=== PATIENT | female | born 1985 | race Caucasian/White ===

== ENCOUNTER 2016-05-12 22:55 | Emergency (ER) | payer OTHER | END 2016-05-13 02:31 | disposition home or self-care (01) | LOC: ER 22:55 | DX: R51 Headache (principal); I10 Essential (primary) hypertension; E11.9 Type 2 diabetes mellitus without complications; Z98.51 Tubal ligation status; F17.210 Nicotine dependence, cigarettes, uncomplicated; Z79.4 Long term (current) use of insulin; Z88.8 Allergy status to other drugs, medicaments and biological substances | CPT/HCPCS: 36415; 96361; 96374; 96375; J1200; J1885; J2765 ==

== ENCOUNTER 2016-05-18 22:27 | Emergency (ER) | payer OTHER | END 2016-05-19 00:10 | disposition home or self-care (01) | LOC: ER 22:27 | DX: R51 Headache (principal); E11.9 Type 2 diabetes mellitus without complications; F17.210 Nicotine dependence, cigarettes, uncomplicated; Z79.899 Other long term (current) drug therapy; Z79.4 Long term (current) use of insulin; Z88.8 Allergy status to other drugs, medicaments and biological substances; Z87.442 Personal history of urinary calculi | CPT/HCPCS: 96374; 96375; J1100; J1885; J2060; J2765 ==